=== PATIENT | male | born 1955 | race Caucasian/White ===

== ENCOUNTER 2022-02-06 07:59 | Outpatient (CLI) | payer MEDICARE, SELFPAY ==
--- NOTE | ~2022-02-06 | NM_ITS ---
EXAMINATION: NM bone scan whole body DATE: 02/06/2022 13:01 INDICATION: Prostate cancer TECHNIQUE: 22.8 mCi Tc-99m HDP was administered intravenously. Delayed whole-body scintigrams were o btained. COMPARISON: CT abdomen and pelvis dated 02/06/2022 and bone scan dated 03/26/2018 FINDINGS: Scattered likely degenerative joint centered uptake with typical distribution at the bilateral acromi oclavicular and sternoclavicular joints, bilateral elbows, hands and wrists, knees and feet. 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 A co uple small foci of likely dental disease related increased uptake at the left and right maxilla. It i s a single more typical new tiny focus of increased uptake at the anterior midline of the skull. No o ther processes bone uptake to suggest metastatic disease. IMPRESSION: 1. There is a new single tiny focus of atypical mild increased uptake at the anterior midline of the skull which are indeterminate etiology. Metastatic disease on the differential would be unlikely give n the absence of any additional foci of atypical bone uptake but would consider CT for correlation. 2. Otherwise typical pattern of scattered degenerative joint centered uptake as detailed above. Reviewed, dictated and finalized at location A. IMPRESSION: 1. There is a new single tiny focus of atypical mild increased uptake at the an terior midline of the skull which are indeterminate etiology. Metastatic diseas e on the differential would be unlikely given the absence of any additional foc i of atypical bone uptake but would consider CT for correlation. 2. Otherwise typical pattern of scattered degenerative joint centered uptake as detailed above.
--- NOTE | ~2022-02-06 | CT_ITS ---
EXAMINATION: CT abdomen pelvis w con INDICATION: Prostate cancer TECHNIQUE: Computed tomographic images of the abdomen and pelvis were obtained after the administrati on of 100 cc of Omnipaque 350 intravenous contrast. The dose-length product (DLP) was 1166.12 mGy-cm. Automated exposure control and iterative reconstruction technique were employed. COMPARISON: 03/26/2018 FINDINGS: Minimal dependent atelectasis is present in the lung bases. The heart size is normal. There is small sliding hiatal hernia. There is a 4 mm cyst of the liver. The spleen, pancreas, gallbladder , and adrenal glands are normal. There is a 9 mm cyst of the right kidney. The left kidney is unremar kable. A retroaortic left renal vein is noted. Changes of prostatectomy are noted. No pathologically enlarged abdominal or pelvic lymph nodes are identified. There is an increase in number of nonpatholo gically enlarged right common iliac chain lymph nodes. There is no free intraperitoneal gas or eviden ce of bowel obstruction. There is mild lumbar spondylosis. IMPRESSION: 1. No evidence of metastatic disease. Reviewed, dictated and finalized at location B.
[2022-02-06 08:28] LABS: Estimated Glomerular Filt Rate > 60
== END 2022-02-06 08:00 | disposition home or self-care (01) ==
LOC: ANHIMG 08:04
PROVIDERS: PCP Internal Medicine; Visit Provider Urology
DX: C61 Malignant neoplasm of prostate (principal); K76.89 Other specified diseases of liver; K44.9 Diaphragmatic hernia without obstruction or gangrene; M47.816 Spondylosis without myelopathy or radiculopathy, lumbar region
CPT/HCPCS: 74177; 78306; A9561; Q9967

== ENCOUNTER 2022-02-14 12:19 | Outpatient (CLI) | payer MEDICARE, SELFPAY ==
--- NOTE | ~2022-02-14 | CT_ITS ---
EXAMINATION: CT brain wo con DATE: 02/14/2022 13:00 INDICATION: Prostate cancer. New single tiny focus of atypical mildly increased uptake at anterior midline of skull on 02/06/2022 r adionuclide bone scan TECHNIQUE: Computed tomography (CT) of the head was performed without intravenous contrast. The mA wa s adjusted according to patient size. Iterative reconstruction technique was employed. Exam dose: 60 5.33 mGy-cm total exam DLP. COMPARISON: 02/06/2022 bone scan FINDINGS: There is no suspicious osteolytic or osteoblastic lesion at the pinpoint area of increased activity in the midline frontal skull area on the recent bone scan. No skull fracture or bone destruction. There is very prominent fecal periosteal thickening of the right sphenoid sinus and mild mucoperioste al thickening of the left sphenoid sinus. The paranasal sinuses and mastoid air cells included in the examination are otherwise normally developed and aerated. Prominent bilateral carotid siphon internal carotid artery calcification. No intracranial mass lesion or hemorrhage, midline shift or mass i. Normal ventricular size. No subdural or epidural hematoma. IMPRESSION: No significant abnormality of the skull Cerebral atherosclerosis Bilateral sphenoid sinusitis, particularly prominent on the right Reviewed, dictated and finalized at Location A. Reviewed, dictated and finalized at location B.
== END 2022-02-14 12:20 | disposition home or self-care (01) ==
PROVIDERS: PCP Internal Medicine; Visit Provider Urology
DX: C61 Malignant neoplasm of prostate (principal); I67.2 Cerebral atherosclerosis; J32.3 Chronic sphenoidal sinusitis
CPT/HCPCS: 70450

== ENCOUNTER 2022-10-31 14:41 | Outpatient (CLI) | payer MEDICARE, SELFPAY ==
--- NOTE | ~2022-10-31 | DEXA_ITS ---
Bone Density Report Name: PETER YA Age: 67 Sex: Male Ethnicity: White Date of : 1955 Indication: cancer; Referring Provider: GUALBERTO PRECIADO Study: Bone densitometry was performed. Exam Date: October 31, 2022 Accession number: [id number] Bone Density: Region BMD T-score Z-score Classification AP Spine(L1-L4) 0.911 -1.6 -0.8 Osteopenia Femoral Neck (Left) 0.793 -1.0 0.1 Normal Total Hip (Left) 1.024 -0.1 0.6 Normal Femoral Neck (Right) 0.788 -1.0 0.1 Normal Total Hip (Right) 0.898 -0.9 -0.3 Normal Total Hip Mean 0.961 -0.5 0.2 Normal World Health Organization criteria for BMD impression classify patients as: Normal (T-score at or above -1.0), Osteopenia (T-score between -1.0 and -2.5), or Osteoporosis (T-score at or below -2.5). 10-year Fracture Risk(1): Major Osteoporotic Fracture 4.8% Hip Fracture 0.6% Reported Risk Factors: [place] (), Neck BMD=0.788, BMI=37.8 (1) FRAX(R) Version 3.08. Fracture probability calculated for an untreated patient. Fracture probability may be lower if the patient has received treatment. Clinical Information Provided by Patient: Has used the following medications: HRT (i.e. estrogen/hormone therapy) Has the following medical conditions: Cancer Patient maximum height was 65 No regular weight bearing exercise Does not regularly consume dairy products Drinks caffeinated beverages Impression: The patient has low bone mass, based on the Total Spine T-score. The patient has an estimated ten-year risk of hip fracture of 0.6% and an estimated ten-year risk of major fracture of 4.8%, based on the WHO FRAX algorithm. Discussion: BONE DENSITY IS LOW AT ONE OR MORE SKELETAL SITES. This patient's lowest T-score is low at one or more skeletal sites. It meets the World Health Organization's (WHO) criteria for ?low bone mass? (T-score between -1.0 and -2.5). The patient's 10-year risk of fracture as calculated by FRAX is less than the threshold where pharmacological therapy is recommended by the National Osteoporosis Foundation (NOF). However, all treatment decisions require clinical judgment and consideration of individual patient factors, including patient preferences, comorbidities, previous drug use, risk factors not captured in the FRAX model (e.g., frailty, falls, vitamin D deficiency, increased bone turnover, interval significant decline in bone density) and possible under or overestimation of fracture risk by FRAX. The patient should follow a healthful lifestyle (good nutrition with adequate calcium and vitamin D, and appropriate weight-bearing exercise). Follow-Up: Consider repeating this study in 2 to 3 years to reassess this patient's status, or sooner if there is some new clinical indication. Reported by: LEONOR on 10/31/2022
== END 2022-10-31 14:42 | disposition home or self-care (01) ==
PROVIDERS: PCP Nurse Practitioner Family; Visit Provider Urology
DX: M85.88 Other specified disorders of bone density and structure, other site (principal); C61 Malignant neoplasm of prostate
CPT/HCPCS: 77080